=== PATIENT | male | born 1970 | race African-American/Black ===

== ENCOUNTER 2018-10-21 09:24 | Emergency (ER) | payer SELFPAY ==
[~2018-10-21] VITALS: Ht 177.8 cm; Wt 109.0 kg
[2018-10-21] MEDS ORDERED: IBUPROFEN 800MG TABLET PO ONE (10:00)
[2018-10-21] MEDS ORDERED: OXYCODONE HCL/ACETAMINOPHEN 5/325MG TABLET PO ONE (10:00)
[2018-10-21 13:40] VITALS: BP 122/91
== END 2018-10-21 14:34 | disposition home or self-care (01) ==
LOC: ER 09:24
DX: M79.18 Myalgia, other site (principal); M25.512 Pain in left shoulder; M79.605 Pain in left leg; R51 Headache; Z88.1 Allergy status to other antibiotic agents; V49.88XA Car occupant (driver) (passenger) injured in other specified transport accidents, initial encounter; Y93.89 Activity, other specified; Y92.89 Other specified places as the place of occurrence of the external cause; Y99.8 Other external cause status
CPT/HCPCS: 99284

== ENCOUNTER 2022-05-26 13:27 | Emergency (ER) | payer SELFPAY ==
[~2022-05-26] VITALS: Ht 177.8 cm; Wt 105.0 kg
[2022-05-26 13:48] VITALS: BP 128/84
== END 2022-05-26 18:45 | disposition left against medical advice (07) ==
LOC: ER 13:27
DX: R42 Dizziness and giddiness (principal); Z53.21 Procedure and treatment not carried out due to patient leaving prior to being seen by health care provider
CPT/HCPCS: 93005